=== PATIENT | female | born 1980 | race Caucasian/White ===

== ENCOUNTER 2019-11-04 09:00 | Emergency (ER) | payer OTHER, SELFPAY ==
[2019-11-04 09:12] VITALS: BP 145/82; PULSE 75; RESP 18; TEMP 36.6; O2SAT 99
--- NOTE | 2019-11-04 09:16 | ED.URI ---
HPI - URI/Sore Throat General Chief Complaint: Upper Respiratory Infection Stated Complaint: Bronchitis Time Seen by Provider: 11/04/19 09:16 Source: patient and RN notes reviewed Mode of arrival: ambulatory Limitations: no limitations History of Present Illness HPI Narrative: 39 year old female who presents to [facility] care with complaints of runny nose and nasal congestion since Tuesday and then today she has experienced some cough with expectoration of green mucous and heaviness in her upper chest. Patient has history of asthma takes daily Xyzal allergy medication and Singulair daily and has Albuterol inhaler and nebulizer. Patient states that she usually ends up with bronchitis about 4 times a year and thought she had bronchitis in August and was tested for COVID at that time and was positive. Patient states that she has had no residual problems from COVID and had chest x-ray which was clear. Patient denies any fevers, chills, or sweats, denies any acute shortness of breath or noted wheezing. MD elicited complaint: cough, rhinorrhea and nasal congestion Pertinent past history: asthma, seasonal allergies and other (Bronchitis) Onset (ago): day(s) (5) Consistency: progressively worsening Severity: mild Pain scale (0-10): 2 Description of mucous: green Able to tolerate fluids by mouth: Yes Exacerbating factors: exertion Relieving factors: nothing Associated symptoms: rhinorrhea, nasal congestion, cough and other (upper chest heaviness) Treatments prior to arrival: other (Mucinex,singulair,xyzal, albuterol) Related Data Home Medications Medication Instructions Recorded Confirmed albuterol sulfate 90 mcg/actuation 1 inhalation INHALATION Q4-6H PRN 12/29/18 11/04/19 breath activated powder inhaler,sensor levocetirizine 5 mg tablet 5 mg PO DAILY 12/29/18 11/04/19 montelukast 10 mg tablet 10 mg PO DAILY 12/29/18 11/04/19 albuterol sulfate [ProAir HFA] 2 puff INHALATION QID PRN 11/04/19 11/04/19 citalopram 10 mg PO DAILY 11/04/19 11/04/19 Allergies Allergy/AdvReac Type Severity Reaction Status Date / Time adhesive Allergy Mild Rash Verified 11/04/19 09:39 Review of Systems Review of Systems: Narrative: CONSTITUTIONAL: Denies fever, chills, or sweats. EYES: Denies visual changes, redness, or discharge. ENT: Positive rhinorrhea with clear mucous, nasal congestion,no sore throat, or otalgia. CARDIOVASCULAR: Upper chest heaviness no palpitations, or edema. RESPIRATORY: Positive productive cough, denies acute dyspnea GASTROINTESTINAL: Denies abdominal pain, nausea, vomiting, or diarrhea. GENITOURINARY: Denies dysuria or hematuria. SKIN: Denies rash or itching. MUSCULOSKELETAL: Denies back pain, joint pain, or myalgia. NEUROLOGIC: Denies headache, numbness, or weakness. PSYCHIATRIC: Positive for history of anxiety or depression. All systems reviewed & are unremarkable except as noted in HPI and below PMFSH Past Medical History Medical History (Updated 11/04/19 @ 10:17 by Landy Lua NP) Anxiety Asthma History of blood clots Surgical History Surgical History (Updated 11/04/19 @ 09:44 by Landy Lua NP) H/O arthroscopy of right knee H/O bilateral breast reduction surgery History of arthroscopy of left knee Hx of cholecystectomy Family History Family History Father Hypertension Sibling Family history of colitis Grandparent Family history of malignant neoplasm of brain Family history of malignant neoplasm of bone Family history of malignant neoplasm of breast Family history of heart disease in male family member before age 55 Social History Social History Smoking status: Former smoker Tobacco type: cigarettes Alcohol intake: current Comments At time of signature, agree with nursing past medical, surgical, social and family history. There is no relevant family history pertinent to
== END 2019-11-04 09:55 | disposition home or self-care (01) ==
PROVIDERS: Emergency Provider Registered Nurse
DX: J45.901 Unspecified asthma with (acute) exacerbation (principal); J06.9 Acute upper respiratory infection, unspecified; Z87.891 Personal history of nicotine dependence; F41.9 Anxiety disorder, unspecified
CPT/HCPCS: 99213; G0463

== ENCOUNTER → 2020-04-16 10:46 | Outpatient (CLI) | payer OTHER, SELFPAY ==
--- NOTE | ~2020-04-16 | US_ITS ---
EXAMINATION: US transvaginal EXAM DATE: 04/16/2020 11:17 INDICATION: Abnormal uterine bleeding. TECHNIQUE: Pelvic transvaginal sonogram was performed. There are multiple grayscale and Doppler imag es available for interpretation. There is no prior study for comparison. FINDINGS: Uterus measures 11.1 x 5.7 x 5.6 cm, is retroverted and morphologically normal. Endometri al stripe measures 11 mm, within normal limits. There are nabothian cysts. There is no free pelvic fluid. Right adnexa: The ovary measures 3.9 x 2.0 x 3.9 cm and is morphologically normal. Ovarian vascular f low confirmed. Left adnexa: The ovary measures 3.2 x 2.8 x 3.3 cm and is morphologically normal. Ovarian vascular fl ow confirmed. IMPRESSION: 1. Nabothian cysts. Reviewed, dictated and finalized at location [facility]. [employer] IMPRESSION: 1. Nabothian cysts.
== END ==
PROVIDERS: PCP Physician Assistant; Visit Provider Nurse Practitioner
DX: N93.8 Other specified abnormal uterine and vaginal bleeding (principal); N88.8 Other specified noninflammatory disorders of cervix uteri
CPT/HCPCS: 76830

== ENCOUNTER → 2020-05-09 00:30 | Outpatient (CLI) | payer OTHER, SELFPAY ==
[2020-05-09 17:44] LABS: SARS-CoV-2 RNA PCR Negative
== END ==
PROVIDERS: PCP Physician Assistant; Visit Provider Obstetrics & Gynecology Gynecology
DX: Z01.812 Encounter for preprocedural laboratory examination (principal); Z20.822 Contact with and (suspected) exposure to COVID-19
CPT/HCPCS: C9803; U0003; U0005

== ENCOUNTER 2020-05-12 01:17 | Day surgery (SDC) | payer OTHER, SELFPAY ==
[2020-04-30 12:49] VITALS: BMI 41.5
--- NOTE | 2020-05-12 07:19 | P.PNAN_ITS ---
Anes - Initial Pre Proc Eval Procedure: Operation Date: 05/12/20 09:15 Proposed Procedures p Hysteroscopy Dilation and Curettage - Julita Sims MD Date/Time: 05/12/20 07:19 Surgeon: Julita Sims MD Pre Op Diagnosis: abnormal uterine bleeding Patient Data Age: 39 Gender: F Height: 1.8 m Weight: 135 kg Allergies Allergy/AdvReac Type Severity Reaction Status Date / Time adhesive AdvReac Mild Rash Verified 05/12/20 07:45 Home Medications Medication Instructions Recorded Confirmed Type albuterol sulfate 90 mcg/actuation 1 inhalation INHALATION Q4-6H PRN 12/29/18 04/30/20 History breath activated powder inhaler,sensor levocetirizine 5 mg tablet 5 mg PO DAILY 12/29/18 05/12/20 History montelukast 10 mg tablet 10 mg PO DAILY 12/29/18 05/12/20 History albuterol sulfate [ProAir HFA] 2 puff INHALATION QID PRN 11/04/19 04/30/20 His tory venlafaxine [Effexor XR] 75 mg PO DAILY 04/30/20 05/12/20 History Patient hx anesthesia problems: none Family hx anesthesia problems: none PMFSH Past Medical History Medical History (Updated 05/12/20 @ 07:25 by Julita Sims MD) Anxiety Asthma BMI 40.0-44.9, adult Factor V Leiden History of blood clots Ventral hernia without obstruction or gangrene Surgical History Surgical History (Updated 05/12/20 @ 07:24 by Julita Sims MD) H/O arthroscopy of right knee x 1 H/O bilateral breast reduction surgery History of arthroscopy of left knee x 5 Hx of cholecystectomy Family History Family History Father Hypertension Sibling Family history of colitis Grandparent Family history of malignant neoplasm of brain Family history of malignant neoplasm of bone Family history of malignant neoplasm of breast Family history of heart disease in male family member before age 55 Social History Social History Smoking packs per day: 0.3 Smoking cigarettes per day: 6.0 Years smoked: 10 Smoking pack-years: 3.00 Smoking status: Former smoker Tobacco type: cigarettes Alcohol intake: current Substance use: never Substance use type: does not use Living arrangements: with family Gender identity (if verbalized by the patient): Female Spiritual care concerns: No Anes - Eval Final PreProcedure Day of Procedure 05/12/20 07:19 Patient weight: morbidly obese Heart: regular rate and rhythm Lungs: clear to auscultation and normal air movement Airway: Mallampati scale class II Neurological: alert and oriented Last oral intake: >/= 8 hours ASA classification: III Emergent: no Anesthetic plan: proceed Anesthesia type and monitoring: general GIVS and LMA Informed Consent: The patient's anesthetic plan and its attendant risks and benefits were discussed with the patient/family/POA. Questions were solicited and answers provided to the satisfaction of the patient/family/POA.
--- NOTE | 2020-05-12 07:21 | P.HP_ITS ---
History of Present Illness History of Present Illness Consent: Risks, benefits, and alternatives have been discussed and questions answered. Patient agrees to proceed with procedure. Chief complaint: abnormal uterine bleeding Narrative: Cristela Meraz is a 39 year old female with prolonged and heavy cycles. Patient with normal pelvic u/s. EMB done at her prior office last year in April was benign. Recommend to proceed with further evaluation with hysteroscopy and D&C. Risks of infection, bleeding, and perforation discussed and she agrees to proceed. Review of Systems Review of Systems: Narrative: not repeated day of surgery; patient states no changes in status [facility] Past Medical History Medical History (Updated 05/12/20 @ 07:25 by Julita Sims MD) Anxiety Asthma BMI 40.0-44.9, adult Factor V Leiden History of blood clots Ventral hernia without obstruction or gangrene Surgical History Surgical History (Updated 05/12/20 @ 07:24 by Julita Sims MD) H/O arthroscopy of right knee x 1 H/O bilateral breast reduction surgery History of arthroscopy of left knee x 5 Hx of cholecystectomy Family History Family History Father Hypertension Sibling Family history of colitis Grandparent Family history of malignant neoplasm of brain Family history of malignant neoplasm of bone Family history of malignant neoplasm of breast Family history of heart disease in male family member before age 55 Social History Social History Smoking packs per day: 0.3 Smoking cigarettes per day: 6.0 Years smoked: 10 Smoking pack-years: 3.00 Smoking status: Former smoker Tobacco type: cigarettes Alcohol intake: current Substance use: never Substance use type: does not use Living arrangements: with family Gender identity (if verbalized by the patient): Female Spiritual care concerns: No Meds Home Medications and Allergies Home Medications Medication Instructions Recorded Confirmed Type albuterol sulfate 90 mcg/actuation 1 inhalation INHALATION Q4-6H PRN 12/29/18 04/30/20 History breath activated powder inhaler,sensor levocetirizine 5 mg tablet 5 mg PO DAILY 12/29/18 04/30/20 History montelukast 10 mg tablet 10 mg PO DAILY 12/29/18 04/30/20 History albuterol sulfate [ProAir HFA] 2 puff INHALATION QID PRN 11/04/19 04/30/20 History venlafaxine [Effexor XR] 75 mg PO DAILY 04/30/20 04/30/20 History Allergies Allergy/AdvReac Type Severity Reaction Status Date / Time adhesive Allergy Mild Rash Verified 04/30/20 12:51 Exam Const: General: comfortable : External Female Exam: normal external appearance Speculum Exam - Ce rvix: normal appearance of the cervix and Nabothian cyst present Bimanual exam- vagina & uterus: normal bimanual exam, uterine mobility normal and uterine shape normal Bimanual Exam- Adnexa, other: normal adnexae Assessment and Plan Assessment and plan (1) Menorrhagia: Code(s): N92.0 - Excessive and frequent menstruation with regular cycle Status: Acute Assessment and Plan: plan to proceed with D&C hysteroscopy
--- NOTE | 2020-05-12 07:25 | WPDHPUPDATE1 ---
History and Physical Update Update Date/Time: 05/12/20 07:25 History and Physical has been reviewed, including an updated exam of the patient. There are NO changes in the patient's condition. Risks, benefits, and alternatives have been discussed and questions answered. Patient agrees to proceed with procedure.
[2020-05-12 07:30] VITALS: BP 144/84; PULSE 95; RESP 20; TEMP 36.6; O2SAT 100
[2020-05-12] MEDS: ACETAMINOPHEN 500 MG TABLET 1000 MG PO (07:39)
[2020-05-12] MEDS: LACTATED RINGERS 1,000 ML 30 ML IV CONT (07:40)
[2020-05-12] MEDS: ENOXAPARIN 40 MG/0.4 ML SYRINGE SUB-Q (08:00)
--- NOTE | 2020-05-12 08:40 | PM.PROC ---
Procedure Note - Detailed Date of procedure: 05/12/20 Pre-op diagnosis: abnormal uterine bleeding Post-op diagnosis: same Procedure performed: D&C hysteroscopy Description of procedure: The patient was taken to the operating room and placed under anesthesia in the dorsal lithotomy position. She is prepped and draped in the usual sterile fashion. [place] speculum was placed in the vagina and the cervix is grasped on the anterior lip with a tenaculum. The cervix is injected with 1% lidocaine in each quadrant. The uterus is sounded to 8cm. The cervix is serially dilated with Hegar and the diagnostic hysteroscope was placed. No abnormalities are noted. The hysteroscope was removed and the medium sharp curette is used to sharply curette the endometrium until a good uterine cry was noted in all areas. All instruments are removed. Sponge, needle, and instrument counts are correct per this staff. Anesthesia: MAC and local Surgeon: Julita Sims MD Estimated blood loss (mL): 5 Drains: No Packing: No Pathology: yes (endometrial curettings) Complications: No immediate complications Condition: stable Disposition: PACU Findings: uterus 8 cm; grossly secretory appearing; no lesions
[2020-05-12 08:44] VITALS: BP 139/81; PULSE 89; RESP 14; O2SAT 98
[2020-05-12 09:10] VITALS: BP 134/72; PULSE 72; RESP 20
[2020-05-12 09:30] VITALS: RESP 20
== END 2020-05-12 09:49 | disposition home or self-care (01) ==
PROVIDERS: PCP Physician Assistant; Visit Provider Obstetrics & Gynecology Gynecology
PROC: 0U5B8ZZ Destruction of Endometrium, Via Natural or Artificial Opening Endoscopic (ICD-10-PCS; CPT 58563; principal; 2020-05-12 09:15)
DX: N92.0 Excessive and frequent menstruation with regular cycle (principal); F41.9 Anxiety disorder, unspecified; J45.909 Unspecified asthma, uncomplicated; D68.51 Activated protein C resistance; Z87.891 Personal history of nicotine dependence; E66.01 Morbid (severe) obesity due to excess calories; Z68.41 Body mass index [BMI] 40.0-44.9, adult; Z79.51 Long term (current) use of inhaled steroids; Z90.49 Acquired absence of other specified parts of digestive tract
CPT/HCPCS: 58558; 88305; A9270; J1650; J2250; J2704; J3010; J7030; J7120

== ENCOUNTER 2020-12-08 00:22 | Day surgery (SDC) | payer OTHER, SELFPAY ==
[2020-12-02 14:04] VITALS: BMI 36.2
[2020-12-08 08:00] VITALS: BP 145/83; PULSE 88; RESP 16; TEMP 36.3; O2SAT 100
--- NOTE | 2020-12-08 08:05 | WPDHPUPDATE1 ---
History and Physical Update Update Date/Time: 12/08/20 08:05 History and Physical has been reviewed, including an updated exam of the patient. There are NO changes in the patient's condition. Risks, benefits, and alternatives have been discussed and questions answered. Patient agrees to proceed with procedure.
--- NOTE | 2020-12-08 08:05 | PM.HPGS ---
History of Present Illness History of Present Illness Consent: Risks, benefits, and alternatives have been discussed and questions answered. Patient agrees to proceed with procedure. Chief complaint: Menorrhagia Narrative: Cristela Meraz is a 40 year old female with recent endometrial biopsy and hysteroscopy revealing benign findings consistent with dysfunctional uterine bleeding. The patient was given options for therapy and due to her complicated history of prior deep vein thrombosis she has elected to proceed with non medical therapy and has chosen to proceed with endometrial ablation. Risks of infection, bleeding, perforation, and failure were reviewed. Expectations postop were reviewed including bleeding changes. Due to the patient's prior DVT history she will be given Lovenox prior to procedure. Patient voices understanding and agrees to proceed. Review of Systems Constitutional: Constitutional: Reports night sweats (And hot flashes) PMFSH Past Medical History Medical History (Updated 12/08/20 @ 08:09 by Julita Sims MD) Anxiety Asthma BMI 40.0-44.9, adult Factor V Leiden History of blood clots (normal spontaneous vaginal delivery) x2 Ventral hernia without obstruction or gangrene Surgical History Surgical History (Updated 05/12/20 @ 07:24 by Julita Sims MD) H/O arthroscopy of right knee x 1 H/O bilateral breast reduction surgery History of arthroscopy of left knee x 5 Hx of cholecystectomy Family History Family History Father Hypertension Sibling Family history of colitis Grandparent Family history of malignant neoplasm of brain Family history of malignant neoplasm of bone Family history of malignant neoplasm of breast Family history of heart disease in male family member before age 55 Social History Social History Smoking packs per day: 0.3 Smoking cigarettes per day: 6.0 Years smoked: 10 Smoking pack-years: 3.00 Smoking status: Former smoker Tobacco type: cigarettes Smoking end date: 11/18/14 Alcohol intake: current Drinks per week: 2 Alcohol use details: Socially Substance use: never Substance use type: does not use Living arrangements: with family Gender identity (if verbalized by the patient): Female Spiritual care concerns: No Meds Home Medications and Allergies Home Medications Medication Instructions Recorded Confirmed Type albuterol sulfate 90 mcg/actuation 1 inhalation INHALATION Q4-6H PRN 12/29/18 12/02/20 History breath activated powder inhaler,sensor levocetirizine 5 mg tablet 5 mg PO DAILY 12/29/18 12/02/20 History montelukast 10 mg tablet 10 mg PO DAILY 12/29/18 12/02/20 History albuterol sulfate [ProAir HFA] 2 puff INHALATION QID PRN 11/04/19 12/02/20 History venlafaxine [Effexor XR] 75 mg PO DAILY 04/30/20 12/02/20 History metformin 1,000 mg PO DAILY 12/02/20 12/02/20 History dk-po-aionbff-biotin-vit D3-FA 1 tablet PO 12/02/20 History [Biotin Plus-Calcium and Vit D3] rosuvastatin [Crestor] 5 mg PO DAILY 12/02/20 12/02/20 History Allergies Allergy/AdvReac Type Severity Reaction Status Date / Time adhesive AdvReac Mild Rash Verified 05/12/20 07:45 Exam Const: General: healthy appearing and comfortable Resp: Effort & Inspection: normal respiratory effort GI: GI Palp: No abdominal tenderness : External Female Exam: normal external appearance Speculum Exam - Vagina: normal appearance of the vagina Speculum Exam - Cervix: normal appearance of the cervix Bimanual exam- vagina & uterus: normal bimanual exam and enlarged (10-11 wk) Bimanual Exam- Adnexa, other: normal adnexae Assessment and Plan Assessment and plan (1) Menorrhagia: Code(s): N92.0 - Excessive and frequent menstruation with regular cycle Status: Acute Assessment and Plan: Plan to proce
[2020-12-08] MEDS: ACETAMINOPHEN 500 MG TABLET 1000 MG PO (08:32)
[2020-12-08] MEDS: LACTATED RINGERS 1,000 ML 30 ML IV CONT (08:38)
--- NOTE | 2020-12-08 08:49 | WPDANESEPPF ---
Anes - Initial Pre Proc Eval Procedure: Operation Date: 12/08/20 10:00 Proposed Procedures p Hysteroscopy with Sarah Endometrial Ablation - Julita Sims MD Date/Time: 12/08/20 08:49 Surgeon: Julita Sims MD Pre Op Diagnosis: Menorrhagia Patient Data Age: 40 Gender: F Height: 1.8 m Weight: 118 kg Last Vital Signs Temp 36.3 C L 12/08/20 08:00 Pulse 88 12/08/20 08:00 Resp 16 12/08/20 08:00 BP 145/83 H 12/08/20 08:00 Pulse Ox 100 12/08/20 08:00 Allergies Allergy/AdvReac Type Severity Reaction Status Date / Time adhesive AdvReac Mild Rash Verified 12/08/20 08:25 Home Medications Medication Instructions Recorded Confirmed Type albuterol sulfate 90 mcg/actuation 1 inhalation INHALATION Q4-6H PRN 12/29/18 12/08/20 History breath activated powder inhaler,sensor levocetirizine 5 mg tablet 5 mg PO DAILY 12/29/18 12/08/20 History montelukast 10 mg tablet 10 mg PO DAILY 12/29/18 12/08/20 History albuterol sulfate [ProAir HFA] 2 puff INHALATION QID PRN 11/04/19 12/08/20 History venlafaxine [Effexor XR] 75 mg PO DAILY 04/30/20 12/08/20 History metformin 1,000 mg PO DAILY 12/02/20 12/08/20 History sy-jr-digazhe-biotin-vit D3-FA 1 tablet PO 12/02/20 History [Biotin Plus-Calcium and Vit D3] rosuvastatin [Crestor] 5 mg PO DAILY 12/02/20 12/08/20 History Patient hx anesthesia problems: none Family hx anesthesia problems: none Results Review: All pre-operative results and documents have been reviewed as part of the pre-operative evaluation. [facility] Past Medical History Medical History Anxiety Asthma BMI 40.0-44.9, adult Factor V Leiden History of blood clots (normal spontaneous vaginal delivery) x2 Ventral hernia without obstruction or gangrene Surgical History Surgical History H/O arthroscopy of right knee x 1 H/O bilateral breast reduction surgery History of arthroscopy of left knee x 5 Hx of cholecystectomy Family History Family History Father Hypertension Sibling Family history of colitis Grandparent Family history of malignant neoplasm of brain Family history of malignant neoplasm of bone Family history of malignant neoplasm of breast Family history of heart disease in male family member before age 55 Social History Social History Smoking packs per day: 0.3 Smoking cigarettes per day: 6.0 Years smoked: 10 Smoking pack-years: 3.00 Smoking status: Former smoker Tobacco type: cigarettes Smoking end date: 11/18/14 Alcohol intake: current Drinks per week: 2 Alcohol use details: Socially Substance use: never Substance use type: does not use Living arrangements: with family Gender identity (if verbalized by the patient): Female Spiritual care concerns: No Anes - Eval Final PreProcedure Day of Procedure 12/08/20 08:49 Patient weight: obese Heart: regular rate and rhythm Lungs: clear to auscultation Airway: Mallampati scale class II Neurological: alert and oriented Last oral intake: >/= 8 hours ASA classification: III Emergent: no Anesthetic plan: proceed Anesthesia type and monitoring: general GIVS and standard monitoring Results Review: All pre-operative results and documents have been reviewed as part of the pre-operative evaluation. Informed Consent: The patient's anesthetic plan and its attendant risks and benefits were discussed with the patient/family/POA. Questions were solicited and answers provided to the satisfaction of the patient/family/POA.
[2020-12-08] MEDS: ENOXAPARIN 40 MG/0.4 ML SYRINGE SUB-Q (09:02)
[2020-12-08] MEDS: LIDOCAINE HCL 1% PF 30 ML VIAL INFILTRATE (09:52)
[2020-12-08 10:04] VITALS: BP 142/93; PULSE 83; RESP 18; O2SAT 96
--- NOTE | 2020-12-08 10:06 | P.OP_ITS ---
Procedure Note - Detailed Date of Procedure 12/08/20 Pre-op Diagnosis Menorrhagia Post-op Diagnosis same Procedure Performed Hysteroscopy with Sarah ablation Surgeon Julita Sims MD Anesthesia MAC and local Findings Uterus sounds to 10cm and appears grossly normal Description of Procedure The patient is taken to the operating room and placed under anesthesia in the dorsal lithotomy position. She is prepped and draped in the usual sterile fashion. [place] speculum was placed in the vagina and the cervix is grasped on the anterior lip with a tenaculum. Cervix is injected with 1% lidocaine in each quadrant. Uterus is sounded to 10cm. The cervix is serially dilated with Hegar. The hysteroscope was placed with no abnormalities noted. The Sarah device is opened and placed. It is set at 6.5 length. It passed cavity assessment on 1st attempt. Full 2minute treatment cycle was performed. The device is removed and the hysteroscope replaced with a good ablation effect noted. All instruments are removed. Sponge, needle, and instrument counts are correct per the OR staff. The patient is awakened from anesthesia and taken to recovery in stable condition. Estimated Blood Loss 5 Drains No Packing No Pathology none sent Complications No immediate complications Condition stable Disposition PACU
[2020-12-08 10:23] LABS: Glucose Point of Care 105 mg/dl (65-105)
[2020-12-08 10:30] VITALS: BP 145/92; PULSE 74
[2020-12-08] MEDS: KETOROLAC 30 MG/ML VIAL (*BKC) IV PUSH (10:33)
[2020-12-08] MEDS: oxyCODONE HCL (*CRX) 5 MG TAB IR PO (10:40)
[2020-12-08 10:50] VITALS: BP 139/96; PULSE 70
== END 2020-12-08 11:02 | disposition home or self-care (01) ==
PROVIDERS: PCP Physician Assistant; Visit Provider Obstetrics & Gynecology Gynecology
PROC: 0U5B8ZZ Destruction of Endometrium, Via Natural or Artificial Opening Endoscopic (ICD-10-PCS; CPT 58563; principal; 2020-12-08 10:00)
DX: N92.0 Excessive and frequent menstruation with regular cycle (principal); Z79.51 Long term (current) use of inhaled steroids; Z79.84 Long term (current) use of oral hypoglycemic drugs; J45.909 Unspecified asthma, uncomplicated; D68.51 Activated protein C resistance; F41.9 Anxiety disorder, unspecified; Z87.891 Personal history of nicotine dependence; E66.9 Obesity, unspecified; Z68.36 Body mass index [BMI] 36.0-36.9, adult
CPT/HCPCS: 58563; 82948; A9270; J1650; J1885; J2704; J3010; J7030; J7120

== ENCOUNTER 2023-08-03 09:08 | Outpatient (CLI) | payer OTHER, SELFPAY ==
[2023-08-23 15:04] VITALS: BMI 39.7
--- NOTE | 2023-08-23 15:04 | WPDHOMESLEEP ---
Sleep Study - Home Unattended Date of Study: 08/03/23 Ordering Provider: Jenae Cazares, NANCIE Interpreting Provider: Ana Capellan, DO Home Sleep Study Type: Watch PAT Height: 1.8 m Weight: 129.274 kg Body Mass Index: 39.7 Neck Circumference (inches): 16.5 [place]: 11 Reason for Sleep Study Loud snoring Sleep History The patient is a 43-year-old female that had a sleep study ordered by her primary care for evaluation of sleep apnea. The patient denies awakening from sleep short of breath. She occasionally awakens at night with heartburn, belching or cough. She constantly snores loudly enough that others complain. She frequently has trouble sleeping when she has a cold. She denies waking up gasping for air throughout the night. She denies having breathing problems at night observed by herself or others. She frequently sweats excessively at night. She occasionally has heart palpitations or irregular heartbeats during the night. She occasionally falls asleep during the day but never while driving. She denies sleep paralysis and cataplexy. She denies having trouble at school or work due to sleepiness. She occasionally experiences vivid dreamlike scenes upon awakening or falling asleep. She denies feeling afraid of going to sleep. She occasionally has nightmares. She frequently remembers her dreams. She frequently has thoughts racing through her mind. She occasionally feels sad or depressed. She frequently has anxiety. She occasionally has muscular tension. She occasionally notices parts of her body jerk. She rarely kicks during the night. She rarely has crawling and aching feelings in her legs but occasionally has leg pain during the night. She occasionally grinds her teeth during sleep and occasionally awakens with morning jaw pain. She denies being bothered by pain during the day and denies being awakened by pain during the night. She denies waking up feeling stiff in the morning. She denies waking up with sore or achy muscles. She denies waking up with pain in the neck, spine and other joints. She goes to bed at 11:00 p.m. on both weekdays and weekends. It takes her 30 minutes to fall asleep. She wakes up 3 times throughout the night to urinate but the amount of time it takes her to fall back asleep is variable. She wakes up at 7:00 a.m. on weekdays and 8:30 a.m. on the weekends. She typically gets 5-8 hours of sleep per night. She will stay in bed for 10 minutes after waking up in the morning. She currently lives with her 2 children. She denies consuming any caffeinated beverages within 2 hours of bedtime. She denies engaging in physical exercise before bedtime. He will watch television before falling asleep. She will take naps in the afternoon or the evening and they are refreshing. She consumes 3 caffeinated beverages per day. She quit smoking cigarettes 10 years ago. She denies alcohol and recreational drug use. [facility] Past Medical History Medical History Anxiety Asthma BMI 40.0-44.9, adult Factor V Leiden History of blood clots (normal spontaneous vaginal delivery) x2 Ventral hernia without obstruction or gangrene Surgical History Surgical History H/O arthroscopy of right knee x 1 H/O bilateral breast reduction surgery History of arthroscopy of left knee x 5 Hx of cholecystectomy Family History Family History Father Hypertension Sibling Family history of colitis Grandparent Family history of malignant neoplasm of brain Family history of malignant neoplasm of bone Family history of malignant neoplasm of breast Family history of heart disease in male family member before age 55 Social History Social History Smoking packs per day: 0.3 Smoking
== END 2023-08-04 14:26 | disposition home or self-care (01) ==
PROVIDERS: PCP Physician Assistant; Visit Provider Physician Assistant
DX: G47.33 Obstructive sleep apnea (adult) (pediatric) (principal)
CPT/HCPCS: 95800

== ENCOUNTER 2023-11-15 07:54 | Outpatient (CLI) | payer OTHER, SELFPAY ==
--- NOTE | 2023-12-12 15:15 | P.SLEEP_ITS ---
Sleep Study Date of Study: 11/15/23 Ordering Provider: Jenae Cazares, NANCIE Interpreting Physician: Ana Capellan DO Sleep Study Type: CPAP Titration Height: 1.8 m Weight: 138.346 kg Body Mass Index: 42.5 Neck Circumference (inches): 16.5 [place]: 11 Reason for Sleep Study WatchPAT home sleep test on 08/03/2023 that showed an overall AHI of 11.1 with desaturation down to 86%. BLAIR of 3.2 Sleep History The patient is a 43-year-old female that had a sleep study ordered by her primary care for evaluation of sleep apnea. The patient denies awakening from sleep short of breath. She occasionally awakens at night with heartburn, belching or cough. She constantly snores loudly enough that others complain. She frequently has trouble sleeping when she has a cold. She denies waking up gasping for air throughout the night. She denies having breathing problems at night observed by herself or others. She frequently sweats excessively at night. She occasionally has heart palpitations or irregular heartbeats during the night. She occasionally falls asleep during the day but never while driving. She denies sleep paralysis and cataplexy. She denies having trouble at school or work due to sleepiness. She occasionally experiences vivid dreamlike scenes upon awakening or falling asleep. She denies feeling afraid of going to sleep. She occasionally has nightmares. She frequently remembers her dreams. She frequently has thoughts racing through her mind. She occasionally feels sad or depressed. She frequently has anxiety. She occasionally has muscular tension. She occasionally notices parts of her body jerk. She rarely kicks during the night. She rarely has crawling and aching feelings in her legs but occasionally has leg pain during the night. She occasionally grinds her teeth during sleep and occasionally awakens with morning jaw pain. She denies being bothered by pain during the day and denies being awakened by pain during the night. She denies waking up feeling stiff in the morning. She denies waking up with sore or achy muscles. She denies waking up with pain in the neck, spine and other joints. She goes to bed at 11:00 p.m. on both weekdays and weekends. It takes her 30 minutes to fall asleep. She wakes up 3 times throughout the night to urinate but the amount of time it takes her to fall back asleep is variable. She wakes up at 7:00 a.m. on weekdays and 8:30 a.m. on the weekends. She typically gets 5-8 hours of sleep per night. She will stay in bed for 10 minutes after waking up in the morning. She currently lives with her 2 children. She denies consuming any caffeinated beverages within 2 hours of bedtime. She denies engaging in physical exercise before bedtime. He will watch television before falling asleep. She will take naps in the afternoon or the evening and they are refreshing. She consumes 3 caffeinated beverages per day. She quit smoking cigarettes 10 years ago. She denies alcohol and recreational drug use. [facility] Past Medical History Medical History Anxiety Asthma BMI 40.0-44.9, adult Factor V Leiden History of blood clots (normal spontaneous vaginal delivery) x2 Ventral hernia without obstruction or gangrene Surgical History Surgical History H/O arthroscopy of right knee x 1 H/O bilateral breast reduction surgery History of arthroscopy of left knee x 5 Hx of cholecystectomy Family History Family History Father Hypertension Sibling Family history of colitis Grandparent Family history of malignant neoplasm of brain Family history of malignant neoplasm of bone Family history of malignant neoplasm of breast Family history of heart disease in male family member before age 55 Social History Social History Smoking packs per day: 0.3 Smoking cigarettes per day: 6.0 Years smoked: 10 Smoking pack-years: 3.00 Smoking status: Former smoker Tobacco type: cigarettes Smoking end date: 11/18/14 Alcohol intake: current Drinks per week: 2 Alcohol use details: Socially Substance use: never Substance use type: does not use Living arrangements: with family Gender identity (if verbalized by the patient): Female Spiritual care concerns: No Medications Home Medications Medication Instructions Recorded Confirmed Type albuterol sulfate 90 mcg/actuation 1 inhalation inhalation Q4-6H PRN 12/29/18 12/08/20 History breath activated powder Shortness Of Breath Or Wheezing inhaler,sensor (Proair Digihaler) levocetirizine 5 mg tablet (Xyzal) 5 mg PO DAILY 12/29/18 12/08/20 History montelukast 10 mg tablet 10 mg PO DAILY 12/29/18 12/08/20 History (Singulair) albuterol sulfate 90 mcg/actuation 2 puff inhalation QID PRN 11/04/19 12/08/20 History aerosol inhaler (ProAir HFA) Shortness Of Breath Or Wheezing venlafaxine 75 mg capsule,extended 75 mg PO DAILY 04/30/20 12/08/20 History release 24 hr (Effexor XR) metformin 1,000 mg tablet 1,000 mg PO DAILY 12/02/20 12/08/20 History wznvjlat-xvvq-hhuwzbd 200 1 tablet PO 12/02/20 History mg-biotin 450 mcg-vit D3 400 unit-FA tablet (Biotin Plus-Calcium and Vit D3) rosuvastatin 5 mg tablet (Crestor) 5 mg PO DAILY 12/02/20 12/08/20 History Sleep Procedure A full night polysomnogram using the Beezag multi-channel system recorded the standard physiologic parameters including EEG, EOG, submentalis EMG, anterior tibialis EMG, EKG, body position, nasal and oral airflow using nasal pressure sensor and thermistor.? Respiratory parameters of chest and abdominal movements were recorded with Respiratory Inductance Plethysmography belts. Oxygen saturation was recorded by pulse oximetry. Video monitoring was also performed. Sleep stages, periodic limb movements, and EEG arousals were scored in 30 second epochs according to the criteria of the AASM Scoring Manual. The Apnea-Hypopnea Index was calculated using CMS guidelines for definition of hypopnea with 4% O2 desaturations while scoring respiratory events. Sleep Architecture The total recording time was 412.4 minutes.? The total sleep time was 355.0 minutes. Sleep latency was 21.1 minutes. REM latency was 373.5 minutes. Sleep efficiency was 86.1%. The patient had 32 awakenings for an awakening index of 5.4. Wake after Sleep Onset time was 36.0 minutes. The patient spent 54.0 minutes, 15.2% of total sleep time in Stage N1. The patient spent 284.0 minutes, 80.0% in Stage N2. The patient spent 5.5 minutes, 1.5% in Stage N3. The patient spent 11.5 minutes, 3.2% in Stage REM. Respiratory Analysis The patient had 7 hypopneas and 1 obstructive apnea for an overall Apnea Hypopnea Index of 1.4 events per hour. The REM Apnea Hypopnea Index was 0. The NREM Apnea Hypopnea Index was 1.4. The patient had a Central Apnea Hypopnea Index of 0. There was no evidence of Facundo-Trinh Respirations. The patient was started on CPAP 5 cm H2O and was titrated to CPAP 9 cm H2O due to hypopneas. The patient was able to fall asleep starting on CPAP 5 cm H2O. The patient was able to achieve REM sleep starting on CPAP 9 cm H2O. The patient was able to achieve a residual AHI less than 5 with both NREM and REM sleep in the supine position on the final pressure. On CPAP 9 cm H2O, the patient spent 32 minutes in NREM and 11.5 minutes in REM with 2 hypopneas, resulting in an AHI of 2.8. The patient had a sleep efficiency of 84.5% on this pressure setting. Arousals There were 211 total arousals for an arousal index of 35.7. There were 67 spontaneous arousals for an index of 11.3. ?There were 3 arousals due to respiratory events for an index of 0.5. There were 103 arousals due to periodic limb movements for an index of 17.4.? There were 14 arousals due to isolated limb movements for an index of 2.4. Periodic Limb Movements The patient had 28 isolated limb movements with an index of 4.7. The patient had 340 periodic limb movements with index of 57.5, which is elevated (normal <15). Patient had a total of 368 limb movements with a total limb movement index of 62.2. Oximetry Data The patient had an average oxygen saturation of 93.5% in sleep with a minimum oxygen saturation of 89.0% and a maximum oxygen saturation of 98.0%. The patient had 12 oxygen desaturations that were 4% or greater resulting in an Oxygen Desaturation Index of 2.0.? The patient spent 0 minutes of total sleep time with an oxygen saturation below 88%. Snoring Profile Snoring was not present during this study. Cardiac Profile The EKG showed normal sinus rhythm. No arrhythmias or PVCs were seen. The patient had an average pulse rate of 77.3 bpm with a minimum pulse rate of 68.0 bpm and a maximum pulse rate of 99.0 bpm. ? EEG Profile No signs of seizure activity seen. Assessment and Plan Assessment and Plan (1) LELIA (obstructive sleep apnea): Code(s): G47.33 - Obstructive sleep apnea (adult) (pediatric) Status: Acute Assessment and Plan: The patient was started on CPAP 5 cm H2O and was titrated to CPAP 9 cm H2O due to hypopneas. The patient's sleep apnea resolved on the final pressure. I recommend that the patient be prescribed Resmed AutoPAP 5-15 cm H2O, size small Resmed N30i FFM, CPAP filters/tubing and heated humidity. This should be used with all episodes of sleep.? Compliance should be reviewed within 31-90 days of starting therapy for usage greater than 4 hours per night greater than 70% of the nights. The patient should be asked about symptoms such as?excessive daytime sleepiness, quality of sleep, decreased nocturia, increased?mental functioning such as memory, mood, and concentration. While the patient did have a significant number of periodic limb movements, the frequency significantly improved once the patient was titrated to the optimal CPAP pressure. Approximately 1/3 of the periodic limb movements caused arousals in the patient's sleep. The patient's sleep history is not highly suggestive of Restless Leg Syndrome. I recommend asking the patient about leg movements at her first CPAP Compliance visit. Data The data obtained during this sleep study is adequate for interpretation. Certification This sleep study has been reviewed by a board certified sleep medicine physician.
[2023-12-12 16:41] VITALS: BMI 42.5
== END 2023-11-16 05:55 | disposition home or self-care (01) ==
LOC: ANHCSM 07:55
PROVIDERS: PCP Physician Assistant; Visit Provider Physician Assistant
DX: G47.33 Obstructive sleep apnea (adult) (pediatric) (principal); G47.37 Central sleep apnea in conditions classified elsewhere
CPT/HCPCS: 95811